=== PATIENT | female | born 1980 ===

== ENCOUNTER → 2018-12-22 22:06 | Outpatient (REF) | payer OTHER, SELFPAY ==
[2018-12-28 08:45] LABS: Syphilis AB Cascading Reflex NEGATIVE (Negative)
[2018-12-28 14:25] LABS: Mitogen-NIL > 10.00 IU/mL; NIL 0.09 IU/mL; QuantiFERON TB NEGATIVE (Negative); TB1-NIL < 0.01 IU/mL; TB2-NIL < 0.01 IU/mL
== END ==
LOC: LAB 22:06
PROVIDERS: Visit Provider Family Medicine
DX: Z11.1 Encounter for screening for respiratory tuberculosis (principal); Z11.3 Encounter for screening for infections with a predominantly sexual mode of transmission
CPT/HCPCS: 36415; 86480; 86780; 87591